=== PATIENT | female | born 1975 | race Caucasian/White ===

== ENCOUNTER 2019-03-12 12:04 | Day surgery (SDC) | payer OTHER ==
[~2019-03-12] VITALS: Ht 162.6 cm; Wt 65.3 kg
[2019-03-12] MEDS ORDERED: LYRICA (12:42)
[2019-03-12] MEDS ORDERED: OMEPRAZOLE (12:42)
[2019-03-12] MEDS ORDERED: NAPROXEN (12:42)
[2019-03-12] MEDS ORDERED: CYMBALTA (12:42)
[2019-03-12] MEDS ORDERED: ABILIFY (12:42)
[2019-03-12] MEDS ORDERED: VITAMIN D (12:42)
[2019-03-12] MEDS ORDERED: TROKENDI XR (12:42)
[2019-03-12 12:43] VITALS: Ht 162.6 cm; Wt 65.3 kg
--- NOTE | 2019-03-12 12:46 | PREAC ---
Date/Time of Note Date/Time of Note DATE: 03/12/19 TIME: 12:43 Anesthesia Eval and Record Evaluation Time Pre-Procedure Interview DATE: 03/12/19 TIME: 12:43 Age 44 Sex female NPO: 8 hrs Preoperative diagnosis early satiety / alternating constipation and diarrhea Planned procedure EGD / colonoscopy Past Medical History Past Medical History: Includes GI: GERD Psych: Depression Surgery & Anesthesia Issues No known issue Meds Anticoagulation: No Beta Lucinda within 24 hr: No Reason Beta Lucinda not given: Pt. not on B-Lucinda Reported Medications [Vitamin D] No Conflict Check 03/12/19 [Omeprazole] No Conflict Check 03/12/19 [Naproxen] No Conflict Check 03/12/19 [Cymbalta] No Conflict Check 03/12/19 [Lyrica] No Conflict Check 03/12/19 [Abilify] No Conflict Check 03/12/19 [Trokendi Xr] No Conflict Check 03/12/19 Meds reviewed: Yes Allergies Allergies Reviewed: Yes Labs/Studies Labs Reviewed: Reviewed by anesthesiologist test: Negative Pre-procedure Exam Airway: Adequate mouth opening Mallampati: Mallampati II Teeth: Normal Lung: Normal Heart: Normal ASA Physical Status ASA physical status: 2 Emergency: None Planned Anesthetic General/MAC: MAC Pre-operative Attestations Prior to commencing anesthesia and surgery, the patient was re-evaluated, there was verification of: *The patient's identity *The results of appropriate recent lab work and preoperative vital signs *The above evaluation not changing prior to induction *Anesthetic plan, risk benefits, alternative and complications discussed with patient/family; questions answered; patient/family understands, accepts and wishes to proceed. YANELIS LEMOS March 12, 2019 12:46
[2019-03-12 12:55] VITALS: BP 119/74; PULSE 69; RESP 15
[2019-03-12] MEDS ORDERED: PROPOFOL 20 ML ONE ×2 (12:56→13:06)
[2019-03-12] MEDS ORDERED: LIDOCAINE 100 MG SYRINGE ONE (12:56)
[2019-03-12] MEDS ORDERED: FENTAnyl 50 MCG/ML VIAL ONE (13:06)
--- NOTE | 2019-03-12 13:31 | HPN ---
Date/Time of Note Date/Time of Note DATE: 03/12/19 TIME: 13:31 Interval H&P Admission Note Pt. seen H&P reviewed: No system changes GOVIND FAROOQ March 12, 2019 13:31
[2019-03-12 14:01] VITALS: BP 102/61; PULSE 58; RESP 18
--- NOTE | 2019-03-13 05:07 | PAC ---
Date/Time of Note Date/Time of Note DATE: 03/13/19 TIME: 05:07 Post-Anesthesia Notes Post-Anesthesia Note Last documented vital signs Vital Signs Date Temp Pulse Resp B/P (MAP) Pulse Ox O2 O2 Flow FiO2 Time Delivery Rate 03/12/19 97.9 58 18 102/61 98 Room Air 14:01 (75) 03/12/19 97.9 12:55 Activity: WNL Respiratory function: WNL Cardiovascular function: WNL Mental status: Baseline Pain reasonably controlled: Yes Hydration appropriate: Yes Nausea/Vomiting absent: No LILIBETH TANG MD March 13, 2019 05:07
== END 2019-03-12 15:14 | disposition home or self-care (01) ==
LOC: GIL 12:04
PROVIDERS: ATTEND Internal Medicine Gastroenterology
DX: R19.7 Diarrhea, unspecified (principal); K59.00 Constipation, unspecified; K29.50 Unspecified chronic gastritis without bleeding
CPT/HCPCS: 43239; 45380; 84703; 88305; 88312; J2001; J3010; Z7610